=== PATIENT | female | born 1935 | race Caucasian/White ===

== ENCOUNTER 2016-07-03 13:44 | Outpatient (CLI) | payer MEDICARE, OTHER ==
[2015-01-17 09:49] VITALS: BP 128/76
== END 2016-07-03 14:18 ==
LOC: POD 13:44
PROVIDERS: ATTEND Podiatrist
DX: E11.42 Type 2 diabetes mellitus with diabetic polyneuropathy (principal); L84 Corns and callosities
CPT/HCPCS: G0463

== ENCOUNTER 2016-09-11 12:41 | Outpatient (CLI) | payer MEDICARE, OTHER ==
[2015-01-17 09:49] VITALS: BP 128/76
== END 2016-09-11 12:42 ==
LOC: POD 12:41
PROVIDERS: ATTEND Podiatrist
DX: B35.1 Tinea unguium (principal); M79.674 Pain in right toe(s); M79.675 Pain in left toe(s)
CPT/HCPCS: 11721; G0463

== ENCOUNTER 2017-07-31 15:25 | Emergency (ER) | payer MEDICARE, OTHER ==
[2017-07-31] MEDS ORDERED: OXYMETAZOLINE HCL 0.05% NASAL SPRAY NS ONE (15:32)
[2017-07-31 16:08] LABS: BASOPHILS % 0.6 (0.0-1.5); EOSINOPHILS % 1.5 % (0.0-6.8); MEAN CORPUSCULAR HEMOGLOBIN 29.5 pg (28.0-34.0); MEAN CORPUSCULAR VOLUME 92.6 fl (80.0-100.0); NEUTROPHILS # 5.4 # k/uL (1.4-7.7)
[2017-07-31 16:23] LABS: eGFR (African) > 60; eGFR (Non-African) > 60
--- NOTE | 2017-07-31 16:34 | ED Physician Documentation ---
Epistaxis - HISTORIAN Historian: patient, paramedics - [facility] Stated Complaint: nose bleed Chief Complaint: Epistaxis Further Comments: yes (81 year old female patient brought in via EMS with epistaxis. Bleeding resolved in route. Patient reports nose bleed started 2 hours ago, could not get bleeding to stop; called EMS. Patient states she wears oxygen at night. Humidifier bottle was added today.) - ROS MS/SKIN/LYMPH: denies: excessive bruising, bleeding from gums EYES/ENT: none GI/: denies: black stool, problems urinating, other CVS/RESP: denies: chest pain, difficulty breathing, other NEURO/PSYCH: denies: dizziness, anxiety, depression, other - PAST HX Past History: hypertension, other (O2 at night) Other History: cardiac disease, diabetes Type 2 Allergies/Adverse Reactions: Allergies Allergy/AdvReac Type Severity Reaction Status Date / Time tramadol HCl [From Ultram] Allergy Unknown Verified 07/31/17 15:47 Home Medications: Ambulatory Orders Medication Instructions Recorded Naproxen Sodium [Aleve] 220 mg PO SEE.INSTRUCTIONS u2 11/11/12 Atenolol [Tenormin] 1 tab PO DAILY 07/31/17 Spironolactone [Aldactone] 1 tab PO DAILY 07/31/17 - SOCIAL HX Smoking History: non-smoker - FAMILY HX Family History: No - VITAL SIGNS Vital Signs: Vital Signs Temp Pulse Resp BP Pulse Ox 98.6 F 73 16 114/71 95 07/31/17 15:25 07/31/17 15:25 07/31/17 15:25 07/31/17 15:25 07/31/17 15:25 - REVIEWED ASSESSMENTS Nursing Assessment Reviewed: Yes Vitals Reviewed: Yes Progress - Progress Progress: Afrin to bilateral nares. No bleeding while in Er. Son at bedside - states "I want her tested for leukemia". Explained CBC test was normal. Encouraged patient to use saline spray, vaseline and run humidifier at home. Explained humidified O2 would help keep nasal passages moist and decrease bleeding. Explained O2 was very drying to nasal passages. ED Results Lab/Radiology - Lab Results Lab Results: Lab Results 07/31/17 07/31/17 16:00 16:00 WBC 7.60 K/ul K/ul (4.00-12.00) RBC 5.01 M/ul M/ul (3.90-5.20) Hgb 14.8 g/dL g/dL (12.0-16.0) Hct 46.4 % % (34.5-46.5) MCV 92.6 fl fl (80.0-100.0) MCH 29.5 pg pg (28.0-34.0) MCHC 31.8 g/dL g/dL (30.0-36.0) RDW 17.0 % H % (11.3-14.3) Plt Count 243 K/mm3 K/mm3 (130-400) Neut % (Auto) 70.4 % % (39.0-79.0) Lymph % (Auto) 19.4 % % (16.0-50.0) [place] % (Auto) 6.0 % % (0.0-11.0) Eos % (Auto) 1.5 % % (0.0-6.8) Baso % (Auto) 0.6 (0.0-1.5) Neut # (Auto) 5.4 # k/uL # k/uL (1.4-7.7) Lymph # (Auto) 1.5 # k/uL # k/uL (0.6-4.0) [place] # (Auto) 0.4 # k/uL # k/uL (0.0-0.9) Eos # (Auto) 0.1 # k/uL # k/uL (0.0-0.6) Baso # (Auto) 0.0 # k/uL # k/uL (0.0-0.5) Reactive Lymphs % 2.1 % % (0.0-5.0) Reactive Lymphs # 0.2 # k/uL # k/uL (0.0-0.8) Sodium 138 mmol/L mmol/L (136-145) Potassium 3.7 mmol/L mmol/L (3.5-5.1) Chloride 94 mmol/L L mmol/L (98-107) Carbon Dioxide 30 mmol/L mmol/L (22-30) BUN 23 mg/dL H mg/dL (7-17) Creatinine 1.10 mg/dL H mg/dL (0.52-1.04) Estimated Creat Clear 77 Est GFR ( Amer) > 60 (60 - ) Est GFR (Non-Af Amer) > 60 (60 - ) Glucose 101 mg/dL mg/dL (74-106) Calcium 9.9 mg/dL mg/dL (8.4-10.2) Total Bilirubin 0.9 mg/dL mg/dL (0.2-1.3) AST 34 U/L U/L (15-46) ALT 28 U/L U/L (13-69) Alkaline Phosphatase 105 U/L U/L (38-126) Total Protein 7.9 g/dL g/dL (6.3-8.2) Albumin 4.1 g/dL g/dL (3.5-5.0) - Orders Orders: ED Orders Category Date Time Status CBC/PLATELET/DIFF Stat Lab 07/31/17 16:00 Completed CMP Stat Lab 07/31/17 16:00 Completed Oxymetazoline HCl [Afrin 0.05%] Med 07/31/17 15:32 Discontinued 1 spray NS NOW ONE Epistaxis Physical Exam - EXAM General Appearance: mild distress Nose: nml inspection, no active bleeding, no specific site found (for source of previous bleeding), other (bilateral mucosa with erythema) Head/Neck: atraumatic, thyroid nml Eyes/Ears: eyes nml inspection, PERRL, TM nml Mouth: lips nml, gums nml, pharynx nml Neuro/Psych: oriented x3, neuro intact, mood/affect nml, CN's nml as tested, other (AK CHIN) Respiratory: no resp distress, chest non-tender, breath sounds normal CVS: reg rate & rhythm, heart sounds normal, equal pulses, no murmur, no gallop , PMI nml, no JVD, no friction rub, 24 Skin: no skin rash, pallor Discharge Clincal Impression: Epistaxis resolved Referrals: Rich Hernandez MD [Primary Care Provider] - 2 Days Additional Instructions: Rest Run a cool mist humidifier in the room where you sleep Keep nasal passages moisturized with saline spray (over the counter) or a thin coat of saline. If bleeding restarts - apply firm pressure to the side of the nose for 20 minutes Follow up with primary care. Condition: Stable Disposition: 01 HOME, SELF-CARE Decision to Admit: NO Decision Time: 16:34
[2017-07-31 17:08] VITALS: BP 157/64
== END 2017-07-31 16:50 | disposition home or self-care (01) ==
LOC: ED 15:25
DX: R04.0 Epistaxis (principal)
CPT/HCPCS: 80053; 85025; 99283